=== PATIENT | male | born 1995 | race Caucasian/White ===

== ENCOUNTER 2018-03-13 16:35 | Emergency (ER) | payer BC, OTHER ==
--- NOTE | 2018-03-13 16:39 | UC ---
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 He tells me that he was ice skating and fell and a skate blade ran over his finger. Unsure the date of his last tetanus. He bandaged the area and came to . - History Of Current Complaint Stated Complaint: FINGER LAC Time Seen by Provider: 03/13/18 16:39 Hx Obtained From: Patient Mechanism Of Injury: Sharp Trauma Onset/Duration: Sudden Onset Severity: Mild Pain Intensity: 2 Pain Scale Used: 0-10 Numeric - Allergies/Home Medications Allergies/Adverse Reactions: Allergies Allergy/AdvReac Type Severity Reaction Status Date / Time No Known Allergies Allergy Verified 03/13/18 16:49 PMH/Surg Hx/FS Hx/Imm Hx - Additional Past Medical History Additional PMH: None - Surgical History Surgical History: None - Family History Known Family History: Positive: None - Social History Occupation: Student Lives: Dormitory/Roommates Alcohol Use: None Substance Use Type: None Smoking Status (MU): Never Smoked Tobacco - Immunization History Most Recent Influenza Vaccination: unable to obtain Most Recent Pneumonia Vaccination: unable to obtain Review of Systems Constitutional: Negative Skin: Other - Laceration left 5th digit Neurovascular: Negative Musculoskeletal: Negative Neurological: Negative Psychological: Negative All Other Systems Reviewed And Are Negative: Yes Physical Exam - Summary Physical Exam Summary: GENERAL: NAD. WDWN. No pain distress. SKIN: LEFT 5th digit: 7mm linear laceration overlying dorsal DIP. No tendon involvement. CHEST: No accessory muscle use. Breathing comfortably and in no distress. CV: Pulses intact. Cap refill <2seconds MSK: LEFT 5th digit : FROM. NEURO: Alert. PSYCH: Age appropriate behavior. Triage Information Reviewed: Yes Vital Signs: Vital Signs: Temp Pulse Resp BP Pulse Ox 98.2 F 60 16 118/71 100 03/13/18 16:45 03/13/18 16:45 03/13/18 16:45 03/13/18 16:45 03/13/18 16:45 Vital Signs Reviewed: Yes Laceration Repair - Laceration Repair 1 Description: Linear Laceration Size After Repair: Length (cm) - 0.7 Modified For Repair: No Anesthesia Used: 2.0% Lido Cleansing Completed Via Routine Prep: Yes Closure Material: Sutures - 6-0 Closure Method: Single Layer Suture Of: Skin Suture Type: Prolene - THREE Laceration Course/Dx - Course/Dx Course Of Treatment: The procedure was explained to the pt and all questions were answered. A time out was performed, witnessed, and signed. The area was cleansed with sterile saline. 1mL of 2% lidocaine without epi was administered and good anesthetization was achieved. In the usual sterile fashion, THREE 6-0 prolene interrupted sutures were placed. The wound was bandaged with a band- aid. Pt tolerated procedure well. His finger was placed in a removable finger splint to use for the next 2-3 days as the laceration is overlying the DIP. - Differential Dx - Laceration/Wound Provider Diagnoses: Laceration left 5th digit Discharge - Sign-Out/Discharge Documenting (check all that apply): Patient Departure All imaging exams completed and their final reports reviewed: No Studies - Discharge Plan Condition: Stable Disposition: HOME Patient Education Materials: Care For Your Stitches (ED), Laceration (ED) Referrals: Domenic Fontanez MD [Primary Care Provider] - Additional Instructions: If you develop a fever, shortness of breath, chest pain, new or worsening symptoms - please call your PCP or go to the ED. 1) Please keep the area bandaged, clean, dry, and intact for the next 24 hours. 2) If you develop a fever, colored or thick discharge, increased pain or swelling - please call your PCP or go to the ED. 3) Please return in 10-12 days to have your THREE sutures removed. - Billing Disposition and Condition Condition: STABLE Disposition: Home
[2018-03-13 16:49] VITALS: BP 118/71
[2018-03-13] MEDS ORDERED: Tetan/Diph/Pertus SYR(Tdap)* 0.5 ML SYR(BOOSTRIX) use SYR IM ONE (16:57)
[2018-03-13] MEDS ORDERED: Lidocaine 2% PF * 5 ML VIAL INJ ONE (17:15)
== END 2018-03-13 17:51 | disposition home or self-care (01) ==
LOC: UCEAST 16:35
DX: S61.217A Laceration without foreign body of left little finger without damage to nail, initial encounter (principal); W26.8XXA Contact with other sharp object(s), not elsewhere classified, initial encounter; Y93.21 Activity, ice skating; Y92.330 Ice skating rink (indoor) (outdoor) as the place of occurrence of the external cause; Z23 Encounter for immunization
CPT/HCPCS: 12001; 90715; 99201; G0463